=== PATIENT | female | born 2000 | race Caucasian/White ===

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

== ENCOUNTER 2018-01-28 11:23 | Inpatient (IN) | payer OTHER ==
[2018-01-28] MEDS ORDERED: LACTATED RINGER'S 1,000 ML IV (16:24)
[2018-01-28] MEDS ORDERED: METHYLERGONOVINE 0.2 MG INJ IM (16:30)
[2018-01-28] MEDS ORDERED: OXYTOCIN 30 UNITS/LR 500 ML IV ×2 (16:30)
[2018-01-28] MEDS ORDERED: MISOPROSTOL 200 MCG TAB PR (16:30)
[2018-01-28] MEDS ORDERED: NA PHOSPHATE/BIPHOS 133 ML ENEMA PR (16:30)
[2018-01-28] MEDS ORDERED: LIDOCAINE 1% (MPF) 30 ML INJ INJ (16:30)
[2018-01-28] MEDS ORDERED: IBUPROFEN 600 MG TAB PO (16:30)
[2018-01-28] MEDS ORDERED: CARBOPROST 250 MCG INJ IM (16:30)
[2018-01-28] MEDS ORDERED: AMPICILLIN 2 GM/NS (PMX) 100 ML (16:38)
[2018-01-28] MEDS: LACTATED RINGER'S 1,000 ML IV* (17:41)
[2018-01-28] MEDS: AMPICILLIN 2 GM/NS (PMX) 100 ML IV (17:52)
[2018-01-28 17:59] LABS: ADD MAN DIFF? NO
[2018-01-28 18:02] LABS: BASOPHILS % 0.3 % (0.0-2.0); EOSINOPHILS # 0.1 10^3/ul (0.0-0.5); EOSINOPHILS % 0.8 % (0.0-7.0); HEMATOCRIT 37.7 % (37.0-47.0); HEMOGLOBIN 12.5 g/dl (12.0-16.0); LYMPHOCYTES # 3.3 10^3/ul (0.8-2.9); LYMPHOCYTES % 22.2 % (18.0-55.0); MEAN CORPUSCULAR HEMOGLOBIN 27.9 pg (29.0-33.0); MEAN CORPUSCULAR HGB CONC 33.2 g/dl (32.0-37.0); MEAN CORPUSCULAR VOLUME 84.2 fl (72.0-104.0); MEAN PLATELET VOLUME 9.8 fl (7.4-10.4); MONOCYTE # 0.9 10^3/ul (0.3-0.9); MONOCYTES % 6.1 % (0.0-13.0); NEUTROPHIL # 10.4 10^3/ul (1.6-7.5); NEUTROPHILS % 68.7 % (30.0-74.0); PLATELET COUNT 295 10^3/UL (140-415); RED BLOOD COUNT 4.48 10^6/ul (4.20-5.40); RED CELL DISTRIBUTION WIDTH 14.7 % (11.5-14.5)
[2018-01-28 18:02] LABS: WHITE BLOOD COUNT 15.1 10^3/ul (4.8-10.8)
[2018-01-28 18:04] LABS: ADD UMIC NO; UR ASCORBIC ACID 40 mg/dL (NEGATIVE); UR BILIRUBIN (Dip) NEGATIVE (NEGATIVE); UR BLOOD (Dip) NEGATIVE (NEGATIVE); UR CLARITY CLEAR (CLEAR); UR COLOR YELLOW (YELLOW); UR GLUCOSE (Dip) NEGATIVE (NEGATIVE); UR KETONES (Dip) NEGATIVE (NEGATIVE); UR LEUKOCYTE ESTERASE (Dip) NEGATIVE Leu/ul (NEGATIVE); UR NITRITE (Dip) NEGATIVE (NEGATIVE); UR SPECIFIC GRAVITY (Dip) 1.023 (1.003-1.030); UR TOTAL PROTEIN (Dip) NEGATIVE (NEGATIVE); UR UROBILINOGEN (Dip) NEGATIVE (NEGATIVE)
[2018-01-28] MEDS: DINOPROSTONE 10 MG VAG SUPP VAG (18:11)
[2018-01-28 18:20] LABS: INR 0.86; PROTIME 11.8 Sec (11.9-14.9); PT RATIO 0.9
[2018-01-28 18:21] LABS: PARTIAL THROMBOPLASTIN TIME 27.7 Sec (25.0-35.0)
[2018-01-28 18:50] LABS: HEPATITIS B SURFACE ANTIGEN NEGATIVE (NEGATIVE)
[2018-01-28] MEDS: AMPICILLIN 1 GM/NS (PMX) 50 ML IV (22:14)
[2018-01-29] MEDS: LACTATED RINGER'S 1,000 ML IV* ×3 (01:47→18:02)
[2018-01-29] MEDS: AMPICILLIN 1 GM/NS (PMX) 50 ML IV ×4 (02:07→13:54)
[2018-01-29] MEDS: BUTORPHANOL 2 MG INJ IV (04:24)
[2018-01-29] MEDS: DINOPROSTONE 10 MG VAG SUPP VAG (10:45)
[2018-01-29] MEDS ORDERED: FENTAnyl 2MCG/ML-ROPIV 0.2% 100 ML (13:46)
[2018-01-29 15:31] LABS: RAPID PLASMA REAGIN NONREACTIVE (NR)
[2018-01-29] MEDS: OXYTOCIN 30 UNITS/LR 500 ML IV ×3 (16:40→23:01)
[2018-01-29] MEDS: AZITHROMYCIN 500MG/NS (PMX) 250 ML IVPB (17:08)
[2018-01-29] MEDS ORDERED: ZOLPIDEM 5 MG TAB PO (18:30)
[2018-01-29] MEDS ORDERED: CARBOPROST 250 MCG INJ IM (18:30)
[2018-01-29] MEDS: CEPHALEXIN 500 MG CAP PO (18:30)
[2018-01-29] MEDS: IBUPROFEN 600 MG TAB PO (18:30)
[2018-01-29] MEDS ORDERED: MISOPROSTOL 200 MCG TAB PR (18:30)
[2018-01-29] MEDS ORDERED: METHYLERGONOVINE 0.2 MG INJ IM (18:30)
[2018-01-29] MEDS ORDERED: NALOXONE (0.4 MG/ML) INJ IV (19:30)
[2018-01-29] MEDS ORDERED: FENTAnyl 2MCG/ML-ROPIV 0.2% 100 ML BAG EPI (19:30)
[2018-01-29] MEDS: MAGNESIUM HYDROXIDE 30ML CUP PO (21:50)
[2018-01-29] MEDS: SENNA/DOCUSATE NA (8.6MG/50MG) TAB PO (21:50)
[2018-01-29] MEDS: BENZOCAINE 20% 56 ML SPRAY TOP (21:51)
[2018-01-29] MEDS: LANOLIN 7 GM TUBE TOP (21:51)
[2018-01-29] MEDS: WITCH HAZEL/GLYCERIN PAD PR (21:51)
[2018-01-30] MEDS: DIBUCAINE 1% 30 GM OINT PR (00:25)
[2018-01-30] MEDS: CEPHALEXIN 500 MG CAP PO ×5 (00:25→23:52)
[2018-01-30] MEDS: IBUPROFEN 600 MG TAB PO ×5 (00:26→23:53)
[2018-01-30] MEDS: LACTATED RINGER'S 1,000 ML IV* ×4 (02:02→20:02)
[2018-01-30] MEDS: HYDROCODONE/APAP (5/325) TAB PO ×2 (02:55→23:53)
[2018-01-30 06:33] LABS: ADD MAN DIFF? NO
[2018-01-30 06:34] LABS: WHITE BLOOD COUNT 19.1 10^3/ul (4.8-10.8)
[2018-01-30 06:34] LABS: BASOPHIL # 0.1 10^3/ul (0.0-0.1); BASOPHILS % 0.3 % (0.0-2.0); EOSINOPHILS # 0.2 10^3/ul (0.0-0.5); EOSINOPHILS % 0.8 % (0.0-7.0); HEMATOCRIT 31.4 % (37.0-47.0); HEMOGLOBIN 10.4 g/dl (12.0-16.0); LYMPHOCYTES # 4.4 10^3/ul (0.8-2.9); LYMPHOCYTES % 22.9 % (18.0-55.0); MEAN CORPUSCULAR HEMOGLOBIN 28.3 pg (29.0-33.0); MEAN CORPUSCULAR HGB CONC 33.1 g/dl (32.0-37.0); MEAN CORPUSCULAR VOLUME 85.3 fl (72.0-104.0); MEAN PLATELET VOLUME 10.1 fl (7.4-10.4); MONOCYTE # 1.3 10^3/ul (0.3-0.9); NEUTROPHIL # 12.8 10^3/ul (1.6-7.5); NEUTROPHILS % 66.9 % (30.0-74.0); PLATELET COUNT 230 10^3/UL (140-415); RED BLOOD COUNT 3.68 10^6/ul (4.20-5.40)
[2018-01-30] MEDS: MAGNESIUM HYDROXIDE 30ML CUP PO ×2 (09:00→21:00)
[2018-01-30] MEDS: SENNA/DOCUSATE NA (8.6MG/50MG) TAB PO ×2 (09:00→21:00)
[2018-01-31] MEDS: LANOLIN 7 GM TUBE TOP ×2 (00:17→17:46)
[2018-01-31] MEDS: CEPHALEXIN 500 MG CAP PO ×3 (06:01→17:10)
[2018-01-31] MEDS: IBUPROFEN 600 MG TAB PO ×3 (06:02→17:10)
[2018-01-31 08:05] LABS: ADD MAN DIFF? NO
[2018-01-31 08:09] LABS: WHITE BLOOD COUNT 14.8 10^3/ul (4.8-10.8)
[2018-01-31 08:09] LABS: BASOPHIL # 0.1 10^3/ul (0.0-0.1); BASOPHILS % 0.3 % (0.0-2.0); EOSINOPHILS # 0.2 10^3/ul (0.0-0.5); EOSINOPHILS % 1.1 % (0.0-7.0); HEMATOCRIT 31.9 % (37.0-47.0); HEMOGLOBIN 10.6 g/dl (12.0-16.0); LYMPHOCYTES # 3.7 10^3/ul (0.8-2.9); LYMPHOCYTES % 24.8 % (18.0-55.0); MEAN CORPUSCULAR HEMOGLOBIN 28.7 pg (29.0-33.0); MEAN CORPUSCULAR HGB CONC 33.2 g/dl (32.0-37.0); MEAN CORPUSCULAR VOLUME 86.4 fl (72.0-104.0); MEAN PLATELET VOLUME 9.8 fl (7.4-10.4); MONOCYTE # 0.9 10^3/ul (0.3-0.9); NEUTROPHIL # 9.6 10^3/ul (1.6-7.5); NEUTROPHILS % 65.4 % (30.0-74.0); PLATELET COUNT 253 10^3/UL (140-415); RED BLOOD COUNT 3.69 10^6/ul (4.20-5.40); RED CELL DISTRIBUTION WIDTH 14.9 % (11.5-14.5)
[2018-01-31] MEDS: SENNA/DOCUSATE NA (8.6MG/50MG) TAB PO (09:34)
[2018-01-31] MEDS: MAGNESIUM HYDROXIDE 30ML CUP PO (09:34)
[2018-01-31] MEDS: MEASLES,MUMPS,RUBELLA VACCINE INJ SC* (12:17)
[2018-01-31] MEDS: VARICELLA VACCINE LIVE/PF 1,350 UNIT/0.5 ML ML SC* (12:17)
[2018-01-31] MEDS: DIPHTH/TET/ACEL PERTUSS (ADULT) 0.5 ML VIAL IM* (12:17)
== END 2018-01-31 18:59 | disposition home or self-care (01) | DRG 775 ==
LOC: L-D 11:23 → PP1 01-29 18:22
PROC: 10E0XZZ Delivery of Products of Conception, External Approach (ICD-10-PCS; principal; 2018-01-29)
DX: O69.81X0 Labor and delivery complicated by cord around neck, without compression, not applicable or unspecified (principal); O99.824 Streptococcus B carrier state complicating childbirth; Z3A.40 40 weeks gestation of pregnancy; Z37.0 Single live birth
CPT/HCPCS: 62319; 76815; 81003; 85025; 85610; 85730; 86592; 86850; 86900; 86901; 87086; 87340; 90715; 90716